=== PATIENT | female | born 1970 ===

== ENCOUNTER 2018-09-19 05:43 | Day surgery (SDC) | payer OTHER ==
[~2018-09-19 05:43] MED LIST: ATENOLOL-CHLORT1 TA2; COZAAR50 MG PO; LIPITOR20 MG PO; TOPROL XL50 M1 PO
== END 2018-09-19 16:45 | disposition home or self-care (01) ==
LOC: CIR.AMB 05:43
DX: N84.0 Polyp of corpus uteri (principal)

== ENCOUNTER 2018-10-28 07:33 | Inpatient (IN) | payer OTHER ==
[~2018-10-28] VITALS: Ht 157.5 cm; Wt 54.4 kg
[~2018-10-28 07:33] MED LIST changes: +LATANOPROST2.5 ML OP
[2018-11-03] MEDS ORDERED: GABAPENTIN600 MG PO (06:52)
[2018-11-03] MEDS ORDERED: IBUPROFEN800 MG PO (06:53)
[2018-11-03] MEDS ORDERED: MAXFE CAPLET1 EACH PO (06:54)
== END 2018-11-03 10:08 | disposition home or self-care (01) | DRG 743 ==
LOC: EDSTATUS 09:45 → OB/GYN 10-31 05:58 → O/R 10-31 05:58 → SURH 10-31 08:30 → EDSTATUS 10-31 09:45 → SURH 10-31 09:45 → CIR.AMB 10-31 09:45 → OB/GYN 10-31 14:19
PROVIDERS: ADMIT Obstetrics & Gynecology
PROC: 0U9 Female Reproductive System, Drainage (ICD-10-PCS; 2018-10-31)
PROC: 0UT90ZZ Resection of Uterus, Open Approach (ICD-10-PCS; principal; 2018-10-31 08:30)
DX: N93.8 Other specified abnormal uterine and vaginal bleeding (principal); D25.1 Intramural leiomyoma of uterus; N80.0 Endometriosis of uterus; N72 Inflammatory disease of cervix uteri; N80.1 Endometriosis of ovary

== ENCOUNTER 2018-11-25 11:34 | Emergency (ER) | payer OTHER ==
[~2018-11-25] VITALS: Ht 157.5 cm; Wt 45.8 kg
[~2018-11-25 11:34] MED LIST changes: +GABAPENTIN600 MG PO; +IBUPROFEN800 MG PO; +MAXFE CAPLET1 EACH PO
[2018-11-25] MEDS ORDERED: TOPROL XL50 M1 (11:39)
[2018-11-25] MEDS ORDERED: COZAAR50 MG (11:39)
[2018-11-25] MEDS ORDERED: NEURONTIN300 MG (11:39)
[2018-11-25] MEDS ORDERED: MOTRIN IB200 MG (11:40)
== END 2018-11-25 16:24 | disposition home or self-care (01) ==
LOC: ER 11:34
DX: R10.2 Pelvic and perineal pain (principal)